=== PATIENT | male | born 1980 | race Caucasian/White ===

== ENCOUNTER 2020-12-23 13:28 | Outpatient (CLI) | payer BC, SELFPAY ==
--- NOTE | ~2020-12-23 | XR_ITS ---
EXAMINATION: XR shoulder RT min 2V INDICATION: Right shoulder pain TECHNIQUE: Four views of the right shoulder are submitted. COMPARISON: None FINDINGS: Normal alignment. No fracture. Glenohumeral and acromioclavicular joint spaces are normal. IMPRESSION: 1. No acute osseous abnormality. Reviewed, dictated and finalized at location A.
== END 2020-12-23 13:29 ==
PROVIDERS: PCP Nurse Practitioner Family; Visit Provider Nurse Practitioner Family
DX: M25.511 Pain in right shoulder (principal)
CPT/HCPCS: 73030

== ENCOUNTER 2021-11-14 13:04 | Emergency (ER) | payer BC, SELFPAY ==
--- NOTE | 2021-11-14 13:05 | ED.SKABFB ---
HPI - Skin/Abscess/Foreign Bdy General Chief complaint: Wound/Laceration Stated complaint: Insect Bite Time Seen by Provider: 11/14/21 13:05 Source: patient Mode of arrival: ambulatory Limitations: no limitations History of Present Illness HPI narrative: Mr. Rhoades is a 41-year-old male patient presenting to the clinic today with a possible insect bite. He reports that he was bitten last night to the back of his right upper arm. Has swelling, redness and erythema to the right upper extremity. Reports that it is itching and burning. Denies any fever or chills. Related Data Allergies Allergy/AdvReac Type Severity Reaction Status Date / Time No Known Allergies Allergy Verified 11/14/21 13:13 Review of Systems Review of Systems: Pertinent positives per HPI. Patient denies any fever, chills, rash, headache, visual changes, dizziness, cough, runny nose, sore throat, shortness of breath, chest pain, palpitations, nausea, vomiting, diarrhea, constipation, abdominal pain, or any urinary issues. PMFSH Comments At the time of my signature, I reviewed and agree with the nursing past medical, surgical, social, and family history. There is no relevant family history pertinent to the patient complaint. Exam Narrative: General: Well-developed, well nourished, in no apparent distress Head: Normocephalic, atraumatic. Cardio: Regular rate and rhythm, s1 and s2 normal, no murmur appreciated. Resp: Clear to auscultation bilaterally, no rhonchi, rales, wheezing or rubs. Integumentary: [place], warm, and dry, intact without lesion, red indurated area the size of a golf ball to the posterior right upper extremity with redness and swelling going around the upper arm, area is erythemic, tender to palpation, with mild induration. Course Course Emergency Course: Portions of this record may have been created with voice recognition software. Level of Care: Express Care Visit Vital Signs Vital signs: Vital signs reviewed MDM - Skin/Abscess/Foreign Bdy MDM Narrative Medical decision making narrative: At the time of visit patient is resting comfortably on the exam table he reports he was bitten by a horse fly last night. Has induration, pain, redness, swelling, and erythema to the right upper extremity. I will go ahead and give a course of prednisone to help with the allergy component and prescribe a course of doxycycline to cover any bacterial component as this appears to potentially become cellulitis. Supportive measures were discussed with the patient he voiced understanding of discharge instructions and agrees to the treatment plan. Differential Diagnosis Differential diagnosis: Likely abscess of skin or subcutaneous tissue, cellulitis and insect bites Discharge Plan Discharge Clinical Impression: Insect bite, Cellulitis Patient Disposition: Home, Self-Care Condition: Stable Instructions: Antibiotic Form, Cellulitis (ED), Insect Bite or Sting (ED) Additional Instructions: Take medications as prescribed May take Benadryl 25 to 50 mg every 6 hours as needed for the itching Apply cool compresses to the affected area Tylenol/Motrin as needed for pain or fever Follow-up with your PCP and 3 to 5 days if symptoms persist or sooner if they worsen. Prescriptions: New prednisone 20 mg tablet 40 mg PO DAILY 5 Days Qty: 10 0RF doxycycline monohydrate 100 mg capsule 100 mg PO BID 7 Days Qty: 14 0RF Follow-up/Referrals: Jason,NAUN Cabrales [Primary Care Provider] - Time of Disposition: 13:19 Quality NIHSS Nursing Documentation ED NIHSS nursing documentation: reviewed/agree
[2021-11-14 13:16] VITALS: BP 155/95; PULSE 82; RESP 16; TEMP 37.3; O2SAT 98
== END 2021-11-14 13:23 | disposition home or self-care (01) ==
LOC: EXPCOLL 13:09
PROVIDERS: Emergency Provider Nurse Practitioner Family; PCP Nurse Practitioner Family
DX: S40.861A Insect bite (nonvenomous) of right upper arm, initial encounter (principal); L03.113 Cellulitis of right upper limb; W57.XXXA Bitten or stung by nonvenomous insect and other nonvenomous arthropods, initial encounter
CPT/HCPCS: 99213; G0463